=== PATIENT | female | born 1945 | race Caucasian/White ===

== ENCOUNTER 2019-09-08 10:10 | Inpatient (IN) ==
[2019-09-08] MEDS ORDERED: DEXTROSE 10% 250 ML BAG IV PRN (10:23)
[2019-09-08] MEDS ORDERED: GLUCAGON 1 MG VIAL IM PRN ×2 (10:23→12:09)
[2019-09-08] MEDS ORDERED: traMADol 50 MG TABLET PO PRN (10:23)
[2019-09-08] MEDS ORDERED: ACETAMINOPHEN 325 MG TABLET PO PRN (10:23)
[2019-09-08] MEDS ORDERED: ONDANSETRON 4 MG/2 ML VIAL IV PRN (10:23)
[2019-09-08] MEDS ORDERED: LABETALOL 20 MG/4 ML SYRINGE IV PRN (10:28)
[2019-09-08] MEDS ORDERED: DEXTROSE 50% 25 GM/50 ML VIAL IV PRN (12:09)
[2019-09-08 12:30] LABS: Basophils % 0.4 % (0.0-0.8); Eosinophils % 0.4 % (0.00-10.9); Hematocrit 44.5 VOL% (35.7-47.0); Hemoglobin 14.8 GM/DL (12.0-16.0); Immature Granulocytes % 0.4 %; Immature Granulocytes Absolute 0.02 #; Lymphocytes # 1.2 10*3/uL (1.4-4.0); Lymphocytes % 24.7 % (21.3-54.2); Mean Corpuscular HGB Conc 33.3 GM/DL (32-36); Mean Corpuscular Volume 84.8 FL (87-102); Mean Platelet Volume 10.9 FL (9.6-12.0); Monocytes % 7.8 % (1.7-12.7); Neutrophils % 66.3 % (38.7-73.9); Platelet Count 248 T/CUMM (130-400); Red Blood Count 5.25 MC/CUMM (3.8-5.5); Red Cell Distribution Width 13.8 % (9.3-17.3)
[2019-09-08 12:51] LABS: Albumin 3.5 G/DL (3.4-5.0); Bilirubin,Total 0.6 MG/DL (0.2-1.0); Calcium 9.3 MG/DL (8.5-10.1); Osmolality,Calculated 281.8 MOS/KG (273-304); Total Protein 7.9 G/DL (6.4-8.3)
[2019-09-08] MEDS: SODIUM CHLORIDE 0.9% 1,000 ML IV SCH (13:58)
[2019-09-08] MEDS ORDERED: ALBUTEROL 2.5 MG/3 ML NEB RESP TX PRN (15:41)
[2019-09-08] MEDS ORDERED: ASPIRIN 325 MG TABLET PO ONE (15:46)
[2019-09-08] MEDS: POTASSIUM CHLORIDE 10 MEQ TABLET PO SCH (17:47)
[2019-09-08] MEDS: GABAPENTIN 300 MG CAPSULE PO SCH ×2 (17:47→20:08)
[2019-09-08] MEDS: metFORMIN 500 MG TABLET PO SCH (17:47)
[2019-09-08] MEDS: INSULIN LISPRO 100 UNIT/ML SUBCUT SCH ×2 (17:48→20:56)
[2019-09-08] MEDS ORDERED: SIMVASTATIN 40 MG TABLET PO SCH (19:00)
[2019-09-08 19:25] LABS: Apearance,Urine CLEAR (Clear); Bilirubin,Urine Negative (Negative); Blood, Urine Negative (Negative); Glucose,Urine (UA) >=500 mg/dL (Negative); Ketones,Urine 5 mg/dL (Negative); Mucus,Urine Occasional /LPF (Occasional); Nitrite,Urine Negative (Negative); Protein,Urine Negative; RBC,Urine 3 /HPF (0-4); Squamous Epithelial Cell,Urine Occasional /HPF (0-10); Urine Color Straw (Yellow); Urine Specific Gravity 1.024 (1.001-1.035); Urine Urobilinogen < 2.0 EU/DL (0.2-1.0); WBC,Urine 11 /HPF (0-6)
[2019-09-08] MEDS: DOCUSATE SODIUM 100 MG CAPSULE PO SCH (20:07)
[2019-09-08] MEDS: AMITRIPTYLINE 100 MG TABLET PO SCH (20:07)
[2019-09-08] MEDS: MONTELUKAST 10 MG TABLET PO SCH (20:08)
[2019-09-08 20:12] LABS: Barbiturates Screen,Urine Negative (Negative); Benzodiazepines Screen,Urine Negative (Negative); Cannabinoid Screen,Urine Negative (Negative); Opiate Screen,Urine Negative (Negative); Phencyclidine Screen,Urine Negative (Negative)
[2019-09-08] MEDS: FLUTICASONE/SALMETEROL 500-50 DISKUS 14 DOSE INH SCH (20:56)
[2019-09-08] MEDS: INSULIN GLARGINE 100 UNIT/ML SUBCUT SCH (20:56)
[2019-09-08] MEDS: CLOTRIMAZOLE/BETAMETHASONE CREAM 15 GM TUBE TOP SCH (20:58)
[2019-09-08] MEDS ORDERED: INSULIN LISPRO 100 UNIT/ML SUBCUT SCH (21:00)
[2019-09-09] MEDS ORDERED: DEXTROSE 5% NACL 0.9% 1,000 ML IV SCH (00:10)
[2019-09-09] MEDS ORDERED: GLUCOSE GEL 15 GM TUBE PO ONE (00:16)
[2019-09-09] MEDS ORDERED: DEXTROSE 50% 25 GM/50 ML SYRINGE IV ONE (00:45)
[2019-09-09] MEDS ORDERED: GLUCAGON 1 MG VIAL IM ONE (00:45)
[2019-09-09] MEDS ORDERED: GLUCOSE GEL 15 GM TUBE PO PRN (02:00)
[2019-09-09] MEDS ORDERED: DEXTROSE 10% 250 ML BAG IV ONE (02:30)
[2019-09-09 04:58] LABS: Basophils % 0.2 % (0.0-0.8); Eosinophils # 0.1 10*3/uL (0.0-0.87); Eosinophils % 0.8 % (0.00-10.9); Hematocrit 36.1 VOL% (35.7-47.0); Hemoglobin 11.8 GM/DL (12.0-16.0); Immature Granulocytes % 0.4 %; Immature Granulocytes Absolute 0.03 #; Lymphocytes # 2.4 10*3/uL (1.4-4.0); Lymphocytes % 27.9 % (21.3-54.2); Mean Corpuscular HGB Conc 32.7 GM/DL (32-36); Mean Corpuscular Volume 85.5 FL (87-102); Mean Platelet Volume 10.8 FL (9.6-12.0); Monocytes % 6.9 % (1.7-12.7); Neutrophils % 63.8 % (38.7-73.9); Platelet Count 211 T/CUMM (130-400); Red Blood Count 4.22 MC/CUMM (3.8-5.5); Red Cell Distribution Width 13.7 % (9.3-17.3); White Blood Count 8.5 T/CUMM (4-12)
[2019-09-09 05:22] LABS: Calcium 7.9 MG/DL (8.5-10.1); Osmolality,Calculated 288.5 MOS/KG (273-304); Risk Ratio 2.97; VLDL CHOLESTEROL 25.2 MG/DL
[2019-09-09] MEDS: SODIUM CHLORIDE 0.9% 1,000 ML IV SCH ×2 (05:51→12:23)
[2019-09-09] MEDS ORDERED: EMPAGLIFLOZIN 25 MG PO SCH (09:00)
[2019-09-09] MEDS: INSULIN LISPRO 100 UNIT/ML SUBCUT SCH ×7 (09:46→21:49)
[2019-09-09] MEDS: metFORMIN 500 MG TABLET PO SCH ×2 (09:47→16:26)
[2019-09-09] MEDS: LOSARTAN/HCTZ 50-12.5 MG TABLET PO SCH (09:47)
[2019-09-09] MEDS: INSULIN GLARGINE 100 UNIT/ML SUBCUT SCH ×2 (09:47→21:50)
[2019-09-09] MEDS: DOCUSATE SODIUM 100 MG CAPSULE PO SCH ×2 (09:48→21:47)
[2019-09-09] MEDS: CLOTRIMAZOLE/BETAMETHASONE CREAM 15 GM TUBE TOP SCH ×2 (09:48→21:50)
[2019-09-09] MEDS: POTASSIUM CHLORIDE 10 MEQ TABLET PO SCH ×2 (09:48→16:35)
[2019-09-09] MEDS: FLUTICASONE/SALMETEROL 500-50 DISKUS 14 DOSE INH SCH ×2 (09:48→21:49)
[2019-09-09] MEDS: CITALOPRAM 20 MG TABLET PO SCH (09:48)
[2019-09-09] MEDS: GABAPENTIN 300 MG CAPSULE PO SCH ×4 (09:48→21:50)
[2019-09-09] MEDS: ASPIRIN 325 MG TABLET PO SCH (09:48)
[2019-09-09] MEDS: PANTOPRAZOLE 40 MG TABLET PO SCH (09:48)
[2019-09-09] MEDS: AMITRIPTYLINE 100 MG TABLET PO SCH (21:47)
[2019-09-09] MEDS: MONTELUKAST 10 MG TABLET PO SCH (21:47)
[2019-09-09] MEDS: SIMVASTATIN 40 MG TABLET PO SCH (21:51)
[2019-09-10 04:58] LABS: Basophils % 0.5 % (0.0-0.8); Eosinophils # 0.1 10*3/uL (0.0-0.87); Eosinophils % 2.3 % (0.00-10.9); Hematocrit 37.3 VOL% (35.7-47.0); Immature Granulocytes % 0.5 %; Immature Granulocytes Absolute 0.03 #; Lymphocytes # 2.7 10*3/uL (1.4-4.0); Lymphocytes % 44.4 % (21.3-54.2); Mean Corpuscular HGB Conc 32.2 GM/DL (32-36); Mean Corpuscular Volume 86.3 FL (87-102); Mean Platelet Volume 10.9 FL (9.6-12.0); Neutrophils % 45.3 % (38.7-73.9); Platelet Count 198 T/CUMM (130-400); Red Blood Count 4.32 MC/CUMM (3.8-5.5); Red Cell Distribution Width 13.9 % (9.3-17.3); White Blood Count 6.1 T/CUMM (4-12)
[2019-09-10 05:33] LABS: Calcium 8.5 MG/DL (8.5-10.1)
[2019-09-10] MEDS: SODIUM CHLORIDE 0.9% 1,000 ML IV SCH ×3 (09:32→22:08)
[2019-09-10] MEDS: INSULIN LISPRO 100 UNIT/ML SUBCUT SCH ×7 (09:33→22:09)
[2019-09-10] MEDS: INSULIN GLARGINE 100 UNIT/ML SUBCUT SCH ×2 (09:34→22:11)
[2019-09-10] MEDS: ASPIRIN 325 MG TABLET PO SCH (09:34)
[2019-09-10] MEDS: LOSARTAN/HCTZ 50-12.5 MG TABLET PO SCH (09:35)
[2019-09-10] MEDS: POTASSIUM CHLORIDE 10 MEQ TABLET PO SCH ×2 (09:35→16:52)
[2019-09-10] MEDS: PANTOPRAZOLE 40 MG TABLET PO SCH (09:35)
[2019-09-10] MEDS: GABAPENTIN 300 MG CAPSULE PO SCH ×4 (09:35→22:11)
[2019-09-10] MEDS: metFORMIN 500 MG TABLET PO SCH ×2 (09:35→16:53)
[2019-09-10] MEDS: CITALOPRAM 20 MG TABLET PO SCH (09:35)
[2019-09-10] MEDS: CLOTRIMAZOLE/BETAMETHASONE CREAM 15 GM TUBE TOP SCH ×2 (09:35→22:12)
[2019-09-10] MEDS: DOCUSATE SODIUM 100 MG CAPSULE PO SCH ×2 (09:36→22:09)
[2019-09-10] MEDS: FLUTICASONE/SALMETEROL 500-50 DISKUS 14 DOSE INH SCH ×2 (09:36→22:09)
[2019-09-10] MEDS: AMITRIPTYLINE 100 MG TABLET PO SCH (22:09)
[2019-09-10] MEDS: MONTELUKAST 10 MG TABLET PO SCH (22:11)
[2019-09-10] MEDS: SIMVASTATIN 40 MG TABLET PO SCH (22:11)
[2019-09-11 07:32] LABS: Basophils % 0.3 % (0.0-0.8); Eosinophils # 0.2 10*3/uL (0.0-0.87); Eosinophils % 3.1 % (0.00-10.9); Hematocrit 36.4 VOL% (35.7-47.0); Hemoglobin 11.5 GM/DL (12.0-16.0); Immature Granulocytes % 0.3 %; Immature Granulocytes Absolute 0.02 #; Lymphocytes # 2.6 10*3/uL (1.4-4.0); Lymphocytes % 41.4 % (21.3-54.2); Mean Corpuscular HGB Conc 31.6 GM/DL (32-36); Mean Corpuscular Volume 88.1 FL (87-102); Mean Platelet Volume 10.2 FL (9.6-12.0); Monocytes % 6.4 % (1.7-12.7); Neutrophils % 48.5 % (38.7-73.9); Platelet Count 201 T/CUMM (130-400); Red Blood Count 4.13 MC/CUMM (3.8-5.5); White Blood Count 6.2 T/CUMM (4-12)
[2019-09-11 07:57] LABS: Alanine Aminotransferase 16 U/L (13-56); Albumin 2.5 G/DL (3.4-5.0); Alkaline Phosphatase 100 U/L (45-117); Aspartate Amino Transferase 12 U/L (0-37); Bilirubin,Total < 0.39 MG/DL (0.2-1.0); Blood Urea Nitrogen 19 MG/DL (7-18); Estimated Glom Filtration Rate 70 ML/MIN; Glucose 115 MG/DL (74-106); Osmolality,Calculated 281.4 MOS/KG (273-304)
[2019-09-11 08:02] LABS: Eosinophils 6 % (0-10); Hypochromasia 1+; Lymphocytes 43 % (20-55); Microcytosis Slight; Platelet Estimate Adequate; Segmented Neutrophils 50 % (50-85); Total Cells Counted 100
[2019-09-11] MEDS: INSULIN LISPRO 100 UNIT/ML SUBCUT SCH ×7 (08:11→20:17)
[2019-09-11] MEDS: INSULIN GLARGINE 100 UNIT/ML SUBCUT SCH ×2 (09:08→21:07)
[2019-09-11] MEDS: GABAPENTIN 300 MG CAPSULE PO SCH ×4 (09:09→21:23)
[2019-09-11] MEDS: POTASSIUM CHLORIDE 10 MEQ TABLET PO SCH ×2 (09:09→16:49)
[2019-09-11] MEDS: ASPIRIN 325 MG TABLET PO SCH (09:09)
[2019-09-11] MEDS: LOSARTAN/HCTZ 50-12.5 MG TABLET PO SCH (09:09)
[2019-09-11] MEDS: DOCUSATE SODIUM 100 MG CAPSULE PO SCH ×2 (09:10→21:24)
[2019-09-11] MEDS: FLUTICASONE/SALMETEROL 500-50 DISKUS 14 DOSE INH SCH ×2 (09:10→21:24)
[2019-09-11] MEDS: CITALOPRAM 20 MG TABLET PO SCH (09:10)
[2019-09-11] MEDS: PANTOPRAZOLE 40 MG TABLET PO SCH (09:10)
[2019-09-11] MEDS: metFORMIN 500 MG TABLET PO SCH ×2 (09:10→16:05)
[2019-09-11] MEDS: CLOTRIMAZOLE/BETAMETHASONE CREAM 15 GM TUBE TOP SCH ×2 (09:10→21:24)
[2019-09-11] MEDS: SODIUM CHLORIDE 0.9% 1,000 ML IV SCH ×2 (13:03→15:51)
[2019-09-11] MEDS: SIMVASTATIN 40 MG TABLET PO SCH (21:23)
[2019-09-11] MEDS: AMITRIPTYLINE 100 MG TABLET PO SCH (21:24)
[2019-09-11] MEDS: MONTELUKAST 10 MG TABLET PO SCH (21:24)
[2019-09-12] MEDS: SODIUM CHLORIDE 0.9% 1,000 ML IV SCH ×2 (04:44→18:20)
[2019-09-12 06:33] LABS: Calcium 8.6 MG/DL (8.5-10.1); Osmolality,Calculated 282.3 MOS/KG (273-304)
[2019-09-12] MEDS: INSULIN LISPRO 100 UNIT/ML SUBCUT SCH ×7 (08:27→21:41)
[2019-09-12] MEDS: LOSARTAN/HCTZ 50-12.5 MG TABLET PO SCH (08:59)
[2019-09-12] MEDS: ASPIRIN 325 MG TABLET PO SCH (08:59)
[2019-09-12] MEDS: PANTOPRAZOLE 40 MG TABLET PO SCH (08:59)
[2019-09-12] MEDS: POTASSIUM CHLORIDE 10 MEQ TABLET PO SCH ×2 (08:59→17:25)
[2019-09-12] MEDS: DOCUSATE SODIUM 100 MG CAPSULE PO SCH ×2 (09:00→21:41)
[2019-09-12] MEDS: GABAPENTIN 300 MG CAPSULE PO SCH ×4 (09:00→21:42)
[2019-09-12] MEDS: INSULIN GLARGINE 100 UNIT/ML SUBCUT SCH ×2 (09:00→21:42)
[2019-09-12] MEDS: CITALOPRAM 20 MG TABLET PO SCH (09:00)
[2019-09-12] MEDS: metFORMIN 500 MG TABLET PO SCH ×2 (09:00→17:26)
[2019-09-12] MEDS: FLUTICASONE/SALMETEROL 500-50 DISKUS 14 DOSE INH SCH ×2 (09:01→21:41)
[2019-09-12] MEDS: CLOTRIMAZOLE/BETAMETHASONE CREAM 15 GM TUBE TOP SCH ×2 (09:02→21:42)
[2019-09-12] MEDS ORDERED: ASPIRIN EC 81 MG TABLET PO SCH (15:36)
[2019-09-12] MEDS: AMITRIPTYLINE 100 MG TABLET PO SCH (21:41)
[2019-09-12] MEDS: MONTELUKAST 10 MG TABLET PO SCH (21:42)
[2019-09-12] MEDS: SIMVASTATIN 40 MG TABLET PO SCH (21:42)
[2019-09-13] MEDS ORDERED: INSULIN GLARGINE 100 UNIT/ML SUBCUT SCH (08:08)
[2019-09-13] MEDS ORDERED: CLOPIDOGREL 75 MG TABLET PO SCH (09:00)
[2019-09-13] MEDS: DOCUSATE SODIUM 100 MG CAPSULE PO SCH (09:30)
[2019-09-13] MEDS: PANTOPRAZOLE 40 MG TABLET PO SCH (09:30)
[2019-09-13] MEDS: metFORMIN 500 MG TABLET PO SCH (09:30)
[2019-09-13] MEDS: LOSARTAN/HCTZ 50-12.5 MG TABLET PO SCH (09:30)
[2019-09-13] MEDS: GABAPENTIN 300 MG CAPSULE PO SCH ×2 (09:30→14:10)
[2019-09-13] MEDS: CITALOPRAM 20 MG TABLET PO SCH (09:31)
[2019-09-13] MEDS: INSULIN LISPRO 100 UNIT/ML SUBCUT SCH ×4 (09:31→11:50)
[2019-09-13] MEDS: POTASSIUM CHLORIDE 10 MEQ TABLET PO SCH (09:31)
[2019-09-13] MEDS: CLOTRIMAZOLE/BETAMETHASONE CREAM 15 GM TUBE TOP SCH (09:31)
[2019-09-13] MEDS: FLUTICASONE/SALMETEROL 500-50 DISKUS 14 DOSE INH SCH (09:31)
[2019-09-13] MEDS: SODIUM CHLORIDE 0.9% 1,000 ML IV SCH (11:48)
[2019-09-13 12:53] VITALS: BP 151/82
== END 2019-09-13 16:50 | DRG 65 ==
LOC: N.TELEN 10:47
PROVIDERS: ADMIT Internal Medicine; ATTEND Internal Medicine

== ENCOUNTER 2020-05-12 13:34 | Inpatient (IN) ==
[2020-05-12 14:04] LABS: Basophils % 0.2 % (0.0-0.8); Hematocrit 43.4 VOL% (35.7-47.0); Hemoglobin 14.6 GM/DL (12.0-16.0); Immature Granulocytes % 1.1 %; Immature Granulocytes Absolute 0.26 #; Lymphocytes # 0.7 10*3/uL (1.4-4.0); Lymphocytes % 3.1 % (21.3-54.2); Mean Corpuscular HGB Conc 33.6 GM/DL (32-36); Mean Corpuscular Volume 83.9 FL (87-102); Monocytes % 2.8 % (1.7-12.7); Neutrophils % 92.8 % (38.7-73.9); Platelet Count 292 T/CUMM (130-400); Red Blood Count 5.17 MC/CUMM (3.8-5.5); Red Cell Distribution Width 13.9 % (9.3-17.3); White Blood Count 23.7 T/CUMM (4-12)
[2020-05-12 14:14] LABS: INR 1.1; PT Patient Result 11.3 SECS (9.8-11.9); Partial Thromboplastin Time 35.3 SECS (23.9-33.8)
[2020-05-12 14:27] LABS: Albumin 3.3 G/DL (3.4-5.0); Bilirubin,Total 0.6 MG/DL (0.2-1.0); Calcium 9.6 MG/DL (8.5-10.1); Osmolality,Calculated 279.7 MOS/KG (273-304); Total Protein 8.4 G/DL (6.4-8.3)
[2020-05-12] MEDS ORDERED: PANTOPRAZOLE 40 MG VIAL IV STA (15:25)
[2020-05-12] MEDS ORDERED: ONDANSETRON 4 MG/2 ML VIAL IV ONE (15:51)
[2020-05-12] MEDS ORDERED: HYDROmorphone 2 MG/1 ML VIAL IV STA (15:51)
[2020-05-12 16:23] LABS: Alanine Aminotransferase 16 U/L (13-56); Albumin 3.2 G/DL (3.4-5.0); Alkaline Phosphatase 147 U/L (45-117); Aspartate Amino Transferase 12 U/L (0-37); Blood Urea Nitrogen 14 MG/DL (7-18); Calcium 9.1 MG/DL (8.5-10.1); Estimated Glom Filtration Rate 49 ML/MIN; Glucose 389 MG/DL (74-106); Osmolality,Calculated 284.2 MOS/KG (273-304); Total Protein 7.3 G/DL (6.4-8.3)
[2020-05-12] MEDS ORDERED: PIPERACILLIN/TAZOBACTAM 3,375 MG in SODIUM CHLORIDE 0.9% 100 ML IV STA ×2 (16:32→16:56)
[2020-05-12] MEDS ORDERED: LACTATED RINGERS 1,000 ML IV ONE (16:34)
[2020-05-12] MEDS ORDERED: ACETAMINOPHEN 325 MG TABLET PO PRN (16:44)
[2020-05-12] MEDS ORDERED: ALBUTEROL 2.5 MG/3 ML NEB RESP TX PRN (16:47)
[2020-05-12] MEDS ORDERED: PIPERACILLIN/TAZOBACTAM 3,375 MG VIAL IV ONE (16:56)
[2020-05-12] MEDS ORDERED: metFORMIN 500 MG TABLET PO SCH (17:00)
[2020-05-12 18:19] LABS: Bacteria,Urine Occasional /HPF (Few); Bilirubin,Urine Negative (Negative); Blood, Urine Small mg/dL (Negative); Glucose,Urine (UA) >=500 mg/dL (Negative); Ketones,Urine 20 mg/dL (Negative); Mucus,Urine Occasional /LPF (Occasional); Nitrite,Urine Negative (Negative); Protein,Urine 100 MG/DL; RBC,Urine 3 /HPF (0-4); Squamous Epithelial Cell,Urine Occasional /HPF (0-10); Urine Appearance CLEAR (Clear); Urine Color Yellow (Yellow); Urine Urobilinogen < 2.0 EU/DL (0.2-1.0); WBC,Urine 4 /HPF (0-6)
[2020-05-12] MEDS: HYDROmorphone 2 MG/1 ML VIAL IV PRN ×2 (18:21→21:37)
[2020-05-12] MEDS ORDERED: GLUCAGON 1 MG VIAL IM PRN (19:29)
[2020-05-12] MEDS ORDERED: DEXTROSE 50% 25 GM/50 ML VIAL IV PRN (19:29)
[2020-05-12 20:37] LABS: Band Neutrophils 3 % (0-10); Lymphocytes 2 % (20-55); Segmented Neutrophils 90 % (50-85); Total Cells Counted 100
[2020-05-12 20:38] LABS: Platelet Estimate Normal
[2020-05-12] MEDS: GABAPENTIN 300 MG CAPSULE PO SCH (21:28)
[2020-05-12] MEDS: AMITRIPTYLINE 25 MG TABLET PO SCH (21:28)
[2020-05-12] MEDS: ENOXAPARIN 40 MG/0.4 ML SYRINGE SUBCUT SCH (21:29)
[2020-05-12] MEDS: FLUTICASONE/SALMETEROL 500-50 DISKUS 14 DOSE INH SCH (21:31)
[2020-05-12] MEDS: ONDANSETRON 4 MG/2 ML VIAL IV PRN (21:37)
[2020-05-12] MEDS: DOCUSATE SODIUM 100 MG CAPSULE PO SCH (21:45)
[2020-05-13] MEDS: LACTATED RINGERS 1,000 ML IV SCH (00:45)
[2020-05-13] MEDS: INSULIN LISPRO 100 UNIT/ML SUBCUT SCH ×5 (01:15→18:09)
[2020-05-13] MEDS: HYDROmorphone 2 MG/1 ML VIAL IV PRN ×2 (01:23→11:04)
[2020-05-13] MEDS: PIPERACILLIN/TAZOBACTAM 3,375 MG in SODIUM CHLORIDE 0.9% 100 ML IV SCH ×2 (01:32→12:55)
[2020-05-13] MEDS: ONDANSETRON 4 MG/2 ML VIAL IV PRN ×3 (04:59→11:04)
[2020-05-13] MEDS ORDERED: cefOXitin 2,000 MG in SYRINGE 1 EACH IV ONE (06:34)
[2020-05-13] MEDS ORDERED: INDOCYANINE GREEN 25 MG VIAL IV ONE (06:34)
[2020-05-13 07:08] LABS: Basophils % 0.2 % (0.0-0.8); Hematocrit 39.5 VOL% (35.7-47.0); Hemoglobin 12.9 GM/DL (12.0-16.0); Immature Granulocytes % 2.9 %; Immature Granulocytes Absolute 0.75 #; Lymphocytes # 0.6 10*3/uL (1.4-4.0); Lymphocytes % 2.2 % (21.3-54.2); Mean Corpuscular HGB Conc 32.7 GM/DL (32-36); Mean Corpuscular Volume 86.4 FL (87-102); Mean Platelet Volume 10.5 FL (9.6-12.0); Monocytes % 5.7 % (1.7-12.7); Platelet Count 295 T/CUMM (130-400); Red Blood Count 4.57 MC/CUMM (3.8-5.5); Red Cell Distribution Width 14.5 % (9.3-17.3); White Blood Count 25.9 T/CUMM (4-12)
[2020-05-13 07:24] LABS: Albumin 2.5 G/DL (3.4-5.0); Bilirubin,Total 1.1 MG/DL (0.2-1.0); Calcium 9.3 MG/DL (8.5-10.1); Osmolality,Calculated 285.4 MOS/KG (273-304); Total Protein 7.3 G/DL (6.4-8.3)
[2020-05-13] MEDS ORDERED: INSULIN LISPRO 100 UNIT/ML SUBCUT SCH (08:00)
[2020-05-13] MEDS ORDERED: Empagliflozin [Jardiance] PO SCH (09:00)
[2020-05-13] MEDS ORDERED: LOSARTAN/HCTZ 50-12.5 MG TABLET PO SCH (09:00)
[2020-05-13] MEDS: CITALOPRAM 20 MG TABLET PO SCH (09:57)
[2020-05-13] MEDS: DOCUSATE SODIUM 100 MG CAPSULE PO SCH ×2 (09:58→21:10)
[2020-05-13] MEDS: GABAPENTIN 300 MG CAPSULE PO SCH ×2 (09:58→19:19)
[2020-05-13] MEDS ORDERED: BUPIVACAINE MPF 0.25% 30 ML VIAL ONE (10:48)
[2020-05-13] MEDS ORDERED: LIDOCAINE 1%/EPI INJ 20 ML VIAL ONE (10:48)
[2020-05-13 11:04] LABS: Hypochromasia 1+; Platelet Estimate Normal; Polychromasia Slight; Segmented Neutrophils 90 % (50-85); Total Cells Counted 100
[2020-05-13] MEDS: PANTOPRAZOLE 40 MG TABLET PO SCH (12:55)
[2020-05-13] MEDS: FLUTICASONE/SALMETEROL 500-50 DISKUS 14 DOSE INH SCH ×2 (12:55→21:13)
[2020-05-13] MEDS ORDERED: TISSUE ADHESIVE 1 EACH APPLICATOR TOP ONE (15:09)
[2020-05-13] MEDS ORDERED: LIDOCAINE 2% 5 ML VIAL ONE (15:28)
[2020-05-13] MEDS ORDERED: SEVOFLURANE 1 UNIT/15 MINUTE INH ONE (15:28)
[2020-05-13] MEDS ORDERED: propofoL 200 MG/20 ML VIAL IV ONE (15:28)
[2020-05-13] MEDS ORDERED: HYDROmorphone 2 MG/1 ML VIAL IV PRN (15:28)
[2020-05-13] MEDS ORDERED: ONDANSETRON 4 MG/2 ML VIAL ONE (15:29)
[2020-05-13] MEDS ORDERED: NEOSTIGMINE 10 MG/10 ML VIAL ONE (15:29)
[2020-05-13] MEDS ORDERED: ETOMIDATE 40 MG/20 ML VIAL IV ONE (15:29)
[2020-05-13] MEDS ORDERED: LACTATED RINGERS 2,000 ML IV ONE (15:29)
[2020-05-13] MEDS ORDERED: ROCURONIUM 100 MG/10 ML VIAL IV ONE (15:29)
[2020-05-13] MEDS ORDERED: GLYCOPYRROLATE 0.4 MG/2 ML VIAL ONE (15:29)
[2020-05-13] MEDS ORDERED: fentaNYL 100 MCG/2 ML VIAL ONE (15:29)
[2020-05-13] MEDS ORDERED: MIDAZOLAM 2 MG/2 ML VIAL ONE (15:29)
[2020-05-13] MEDS ORDERED: ACETAMINOPHEN 1,000 MG/100 ML VIAL IV ONE (15:29)
[2020-05-13] MEDS ORDERED: PHENYLEPHRINE 1 MG/10 ML SYRINGE IV ONE (15:29)
[2020-05-13] MEDS: ENOXAPARIN 40 MG/0.4 ML SYRINGE SUBCUT SCH (21:10)
[2020-05-13] MEDS: AMITRIPTYLINE 25 MG TABLET PO SCH (21:10)
[2020-05-14] MEDS: GABAPENTIN 300 MG CAPSULE PO SCH ×5 (00:43→21:21)
[2020-05-14] MEDS: INSULIN LISPRO 100 UNIT/ML SUBCUT SCH ×4 (01:52→18:34)
[2020-05-14] MEDS: LACTATED RINGERS 1,000 ML IV SCH ×4 (01:52→09:20)
[2020-05-14 06:45] LABS: Basophils % 0.1 % (0.0-0.8); Eosinophils # 0.1 10*3/uL (0.0-0.87); Eosinophils % 0.5 % (0.00-10.9); Hematocrit 36.9 VOL% (35.7-47.0); Hemoglobin 12.1 GM/DL (12.0-16.0); Immature Granulocytes % 0.8 %; Immature Granulocytes Absolute 0.12 #; Lymphocytes % 6.8 % (21.3-54.2); Mean Corpuscular HGB Conc 32.8 GM/DL (32-36); Mean Corpuscular Volume 86.4 FL (87-102); Mean Platelet Volume 10.2 FL (9.6-12.0); Monocytes % 5.5 % (1.7-12.7); Neutrophils % 86.3 % (38.7-73.9); Platelet Count 296 T/CUMM (130-400); Red Blood Count 4.27 MC/CUMM (3.8-5.5); Red Cell Distribution Width 14.7 % (9.3-17.3); White Blood Count 15.2 T/CUMM (4-12)
[2020-05-14 07:27] LABS: Bilirubin,Total 1.9 MG/DL (0.2-1.0); Calcium 8.8 MG/DL (8.5-10.1); Total Protein 6.8 G/DL (6.4-8.3)
[2020-05-14] MEDS: PANTOPRAZOLE 40 MG TABLET PO SCH (09:14)
[2020-05-14] MEDS: CITALOPRAM 20 MG TABLET PO SCH (09:17)
[2020-05-14] MEDS: DOCUSATE SODIUM 100 MG CAPSULE PO SCH ×2 (09:17→21:21)
[2020-05-14] MEDS: FLUTICASONE/SALMETEROL 500-50 DISKUS 14 DOSE INH SCH ×2 (09:20→21:22)
[2020-05-14] MEDS: TOPIRAMATE 25 MG TABLET PO SCH ×2 (09:22→21:22)
[2020-05-14] MEDS ORDERED: METHOCARBAMOL 750 MG TABLET PO PRN (09:22)
[2020-05-14] MEDS: PIPERACILLIN/TAZOBACTAM 3,375 MG in SODIUM CHLORIDE 0.9% 100 ML IV SCH ×3 (10:13→17:26)
[2020-05-14] MEDS: POTASSIUM CHLORIDE RIDER 10 MEQ in PREMIX 1 EACH IV PRN (10:13)
[2020-05-14] MEDS: POTASSIUM CHLORIDE 10 MEQ TABLET PO SCH (17:23)
[2020-05-14] MEDS: AMITRIPTYLINE 25 MG TABLET PO SCH (21:21)
[2020-05-14] MEDS: ENOXAPARIN 40 MG/0.4 ML SYRINGE SUBCUT SCH (21:22)
[2020-05-15] MEDS: LACTATED RINGERS 1,000 ML IV SCH ×2 (01:06→09:11)
[2020-05-15] MEDS: PIPERACILLIN/TAZOBACTAM 3,375 MG in SODIUM CHLORIDE 0.9% 100 ML IV SCH ×2 (01:13→09:11)
[2020-05-15] MEDS: INSULIN LISPRO 100 UNIT/ML SUBCUT SCH ×5 (01:13→23:34)
[2020-05-15 06:02] LABS: Basophils % 0.3 % (0.0-0.8); Eosinophils # 0.4 10*3/uL (0.0-0.87); Eosinophils % 3.4 % (0.00-10.9); Hematocrit 35.1 VOL% (35.7-47.0); Hemoglobin 11.1 GM/DL (12.0-16.0); Immature Granulocytes % 0.6 %; Immature Granulocytes Absolute 0.07 #; Lymphocytes # 1.3 10*3/uL (1.4-4.0); Lymphocytes % 11.5 % (21.3-54.2); Mean Corpuscular HGB Conc 31.6 GM/DL (32-36); Mean Corpuscular Volume 87.5 FL (87-102); Mean Platelet Volume 10.4 FL (9.6-12.0); Monocytes % 6.2 % (1.7-12.7); Platelet Count 299 T/CUMM (130-400); Red Blood Count 4.01 MC/CUMM (3.8-5.5); Red Cell Distribution Width 14.6 % (9.3-17.3); White Blood Count 11.6 T/CUMM (4-12)
[2020-05-15 07:47] LABS: Albumin 2.1 G/DL (3.4-5.0); Bilirubin,Total 0.4 MG/DL (0.2-1.0); Calcium 8.8 MG/DL (8.5-10.1); Osmolality,Calculated 284.7 MOS/KG (273-304); Total Protein 7.6 G/DL (6.4-8.3)
[2020-05-15] MEDS: CITALOPRAM 20 MG TABLET PO SCH (09:07)
[2020-05-15] MEDS: FLUTICASONE/SALMETEROL 500-50 DISKUS 14 DOSE INH SCH ×2 (09:09→21:37)
[2020-05-15] MEDS: PANTOPRAZOLE 40 MG TABLET PO SCH (09:10)
[2020-05-15] MEDS: GABAPENTIN 300 MG CAPSULE PO SCH ×4 (09:10→21:36)
[2020-05-15] MEDS: DOCUSATE SODIUM 100 MG CAPSULE PO SCH ×2 (09:10→21:36)
[2020-05-15] MEDS: POTASSIUM CHLORIDE 10 MEQ TABLET PO SCH ×2 (09:10→17:43)
[2020-05-15] MEDS: TOPIRAMATE 25 MG TABLET PO SCH ×2 (09:10→21:36)
[2020-05-15] MEDS: amLODIPine 5 MG TABLET PO SCH (09:10)
[2020-05-15] MEDS: AMITRIPTYLINE 25 MG TABLET PO SCH (21:37)
[2020-05-15] MEDS: ENOXAPARIN 40 MG/0.4 ML SYRINGE SUBCUT SCH (21:37)
[2020-05-16] MEDS: LACTATED RINGERS 1,000 ML IV SCH ×3 (02:04→05:55)
[2020-05-16 05:29] LABS: Basophils % 0.5 % (0.0-0.8); Eosinophils # 0.5 10*3/uL (0.0-0.87); Eosinophils % 6.1 % (0.00-10.9); Hematocrit 33.6 VOL% (35.7-47.0); Hemoglobin 10.7 GM/DL (12.0-16.0); Immature Granulocytes % 0.7 %; Immature Granulocytes Absolute 0.06 #; Lymphocytes # 1.9 10*3/uL (1.4-4.0); Lymphocytes % 21.8 % (21.3-54.2); Mean Corpuscular HGB Conc 31.8 GM/DL (32-36); Mean Platelet Volume 9.9 FL (9.6-12.0); Monocytes % 7.2 % (1.7-12.7); Neutrophils % 63.7 % (38.7-73.9); Platelet Count 285 T/CUMM (130-400); Red Blood Count 3.82 MC/CUMM (3.8-5.5); Red Cell Distribution Width 14.6 % (9.3-17.3); White Blood Count 8.7 T/CUMM (4-12)
[2020-05-16 05:47] LABS: Albumin 1.7 G/DL (3.4-5.0); Bilirubin,Total 0.4 MG/DL (0.2-1.0); Calcium 8.4 MG/DL (8.5-10.1); Osmolality,Calculated 279.8 MOS/KG (273-304); Total Protein 6.2 G/DL (6.4-8.3)
[2020-05-16] MEDS: INSULIN LISPRO 100 UNIT/ML SUBCUT SCH ×2 (05:55→11:55)
[2020-05-16] MEDS: CITALOPRAM 20 MG TABLET PO SCH (08:56)
[2020-05-16] MEDS: DOCUSATE SODIUM 100 MG CAPSULE PO SCH (08:56)
[2020-05-16] MEDS: TOPIRAMATE 25 MG TABLET PO SCH (08:56)
[2020-05-16] MEDS: PANTOPRAZOLE 40 MG TABLET PO SCH (08:56)
[2020-05-16] MEDS: amLODIPine 5 MG TABLET PO SCH (08:56)
[2020-05-16] MEDS: FLUTICASONE/SALMETEROL 500-50 DISKUS 14 DOSE INH SCH (08:56)
[2020-05-16] MEDS: POTASSIUM CHLORIDE 10 MEQ TABLET PO SCH (09:02)
[2020-05-16] MEDS: POTASSIUM CHLORIDE RIDER 10 MEQ in PREMIX 1 EACH IV PRN ×4 (09:03→13:16)
[2020-05-16] MEDS: GABAPENTIN 300 MG CAPSULE PO SCH ×2 (10:22→13:16)
[2020-05-16 12:30] VITALS: BP 140/72
== END 2020-05-16 15:44 | disposition home health service (06) | DRG 418 ==
LOC: N.EDINP 13:34 → N.ED 13:34 → N.3E 18:49
PROVIDERS: ADMIT Internal Medicine; ATTEND Internal Medicine

== ENCOUNTER 2021-04-24 20:10 | Inpatient (IN) ==
[2021-04-24] MEDS ORDERED: ONDANSETRON 4 MG/2 ML VIAL IV STA (20:47)
[2021-04-24] MEDS ORDERED: SODIUM CHLORIDE 0.9% 500 ML IV STA (20:47)
[2021-04-24 21:21] LABS: Bilirubin,Urine Negative (Negative); Blood, Urine Moderate mg/dL (Negative); Glucose,Urine (UA) >=500 mg/dL (Negative); Ketones,Urine Negative (Negative); Nitrite,Urine Negative (Negative); Protein,Urine 30 MG/DL; RBC,Urine 10 /HPF (0-4); Squamous Epithelial Cell,Urine Occasional /HPF (0-10); Urine Appearance CLOUDY (Clear); Urine Color Red (Yellow); Urine Specific Gravity 1.028 (1.001-1.035); Urine Urobilinogen < 2.0 EU/DL (0.2-1.0)
[2021-04-24 21:24] LABS: Basophils % 0.3 % (0.0-0.8); Eosinophils # 0.3 10*3/uL (0.0-0.87); Hematocrit 39.4 VOL% (35.7-47.0); Hemoglobin 12.6 GM/DL (12.0-16.0); Immature Granulocytes % 0.4 %; Immature Granulocytes Absolute 0.04 #; Lymphocytes # 2.6 10*3/uL (1.4-4.0); Lymphocytes % 26.7 % (21.3-54.2); Mean Platelet Volume 10.2 FL (9.6-12.0); Monocytes % 6.8 % (1.7-12.7); Neutrophils % 62.8 % (38.7-73.9); Platelet Count 274 T/CUMM (130-400); Red Blood Count 4.53 MC/CUMM (3.8-5.5); Red Cell Distribution Width 13.9 % (9.3-17.3); White Blood Count 9.6 T/CUMM (4-12)
[2021-04-24 21:45] LABS: Alanine Aminotransferase 32 U/L (13-56); Albumin 3.5 G/DL (3.4-5.0); Alkaline Phosphatase 146 U/L (45-117); Aspartate Amino Transferase 27 U/L (0-37); Bilirubin,Total < 0.39 MG/DL (0.20-1.00); Blood Urea Nitrogen 26 MG/DL (7-18); CKMB % 2.6 %; Calcium 8.8 MG/DL (8.5-10.1); Carbon Dioxide 28 MMOL/L (21-32); Estimated Glom Filtration Rate 39 ML/MIN; Glucose 248 MG/DL (74-106); Osmolality,Calculated 287.7 MOS/KG (273-304); Potassium 3.6 MMOL/L (3.5-5.1); Sodium 138 MMOL/L (136-145); Total Protein 6.5 G/DL (6.4-8.2)
[2021-04-24 21:50] LABS: Barbiturates Screen,Urine Negative (Negative); Benzodiazepines Screen,Urine Negative (Negative); Cannabinoid Screen,Urine Negative (Negative); Opiate Screen,Urine Positive (Negative); Phencyclidine Screen,Urine Negative (Negative)
[2021-04-24] MEDS ORDERED: cefTRIAXone 1,000 MG in SODIUM CHLORIDE 0.9% 100 ML IV STA (23:48)
[2021-04-25] MEDS ORDERED: DEXTROSE 50% 25 GM/50 ML VIAL IV PRN (01:16)
[2021-04-25] MEDS ORDERED: HYDROmorphone 2 MG/1 ML VIAL IV PRN (01:16)
[2021-04-25] MEDS ORDERED: GLUCAGON 1 MG VIAL IM PRN (01:16)
[2021-04-25] MEDS ORDERED: ACETAMINOPHEN 325 MG TABLET PO PRN ×2 (01:16→08:52)
[2021-04-25] MEDS: SODIUM CHLORIDE 0.9% 1,000 ML IV SCH ×2 (01:20→15:12)
[2021-04-25 04:38] LABS: Basophils # 0.1 10*3/uL (0.0-0.2); Basophils % 0.6 % (0.0-0.8); Eosinophils # 0.3 10*3/uL (0.0-0.87); Eosinophils % 3.3 % (0.00-10.9); Hematocrit 38.8 VOL% (35.7-47.0); Hemoglobin 12.6 GM/DL (12.0-16.0); Immature Granulocytes % 0.3 %; Immature Granulocytes Absolute 0.03 #; Lymphocytes # 3.2 10*3/uL (1.4-4.0); Lymphocytes % 33.7 % (21.3-54.2); Mean Corpuscular HGB Conc 32.5 GM/DL (32-36); Mean Corpuscular Volume 89.2 FL (87-102); Mean Platelet Volume 10.6 FL (9.6-12.0); Monocytes % 6.8 % (1.7-12.7); Neutrophils % 55.3 % (38.7-73.9); Platelet Count 263 T/CUMM (130-400); Red Blood Count 4.35 MC/CUMM (3.8-5.5); Red Cell Distribution Width 14.1 % (9.3-17.3); White Blood Count 9.4 T/CUMM (4-12)
[2021-04-25 05:02] LABS: Alanine Aminotransferase 28 U/L (13-56); Albumin 3.1 G/DL (3.4-5.0); Alkaline Phosphatase 124 U/L (45-117); Aspartate Amino Transferase 23 U/L (0-37); Bilirubin,Total < 0.39 MG/DL (0.20-1.00); Blood Urea Nitrogen 24 MG/DL (7-18); Calcium 8.2 MG/DL (8.5-10.1); Carbon Dioxide 28 MMOL/L (21-32); Estimated Glom Filtration Rate 41 ML/MIN; Glucose 170 MG/DL (74-106); HDL Cholesterol 52 MG/DL (40-60); Osmolality,Calculated 288.3 MOS/KG (273-304); Potassium 3.2 MMOL/L (3.5-5.1); Risk Ratio 2.46; Sodium 141 MMOL/L (136-145); Total Protein 6.5 G/DL (6.4-8.2); Triglycerides 178 MG/DL (2-150); VLDL Cholesterol 35.6 MG/DL
[2021-04-25] MEDS: INSULIN REGULAR 100 UNIT/ML SUBCUT SCH ×3 (05:44→18:46)
[2021-04-25] MEDS ORDERED: NALOXONE 0.4 MG/ML VIAL IV ONE (08:46)
[2021-04-25] MEDS ORDERED: NON-FORMULARY MEDICATION (Insulin Aspart U-100 [Novolog Flexpen U-100 Insulin] 100 unit/mL SUBCUT SCH (09:00)
[2021-04-25] MEDS: ASPIRIN EC 81 MG TABLET PO SCH (10:20)
[2021-04-25] MEDS: PANTOPRAZOLE 40 MG TABLET PO SCH ×2 (10:21→10:44)
[2021-04-25] MEDS: amLODIPine 2.5 MG TABLET PO SCH (10:21)
[2021-04-25] MEDS: CITALOPRAM 20 MG TABLET PO SCH (10:21)
[2021-04-25] MEDS: CLOPIDOGREL 75 MG TABLET PO SCH (10:21)
[2021-04-25] MEDS: TOPIRAMATE 25 MG TABLET PO SCH ×2 (10:21→21:53)
[2021-04-25] MEDS: DOCUSATE SODIUM 100 MG CAPSULE PO SCH ×2 (10:22→21:51)
[2021-04-25] MEDS: ENOXAPARIN 40 MG/0.4 ML SYRINGE SUBCUT SCH (10:22)
[2021-04-25] MEDS: LOSARTAN/HCTZ 50-12.5 MG TABLET PO SCH (10:24)
[2021-04-25] MEDS: INSULIN LISPRO 100 UNIT/ML SUBCUT SCH ×2 (12:20→18:43)
[2021-04-25] MEDS: METHOCARBAMOL 500 MG TABLET PO PRN (13:42)
[2021-04-25] MEDS: metFORMIN 500 MG TABLET PO SCH (18:43)
[2021-04-25] MEDS: POTASSIUM CHLORIDE 10 MEQ TABLET PO SCH (18:43)
[2021-04-25] MEDS: SIMVASTATIN 40 MG TABLET PO SCH (21:51)
[2021-04-25] MEDS: traZODone 50 MG TABLET PO SCH (21:52)
[2021-04-25] MEDS: MONTELUKAST 10 MG TABLET PO SCH (21:53)
[2021-04-25] MEDS: cefTRIAXone 1,000 MG in SODIUM CHLORIDE 0.9% 100 ML IV SCH (23:52)
[2021-04-25] MEDS: INSULIN GLARGINE 100 UNIT/ML SUBCUT SCH (23:52)
[2021-04-26] MEDS: INSULIN REGULAR 100 UNIT/ML SUBCUT SCH ×4 (00:53→19:21)
[2021-04-26 06:12] LABS: Basophils % 0.5 % (0.0-0.8); Eosinophils # 0.2 10*3/uL (0.0-0.87); Hematocrit 35.7 VOL% (35.7-47.0); Hemoglobin 11.4 GM/DL (12.0-16.0); Immature Granulocytes % 0.4 %; Immature Granulocytes Absolute 0.03 #; Lymphocytes % 24.3 % (21.3-54.2); Mean Corpuscular HGB Conc 31.9 GM/DL (32-36); Mean Corpuscular Volume 88.6 FL (87-102); Mean Platelet Volume 10.4 FL (9.6-12.0); Monocytes % 7.2 % (1.7-12.7); Neutrophils % 65.6 % (38.7-73.9); Platelet Count 231 T/CUMM (130-400); Red Blood Count 4.03 MC/CUMM (3.8-5.5); Red Cell Distribution Width 14.1 % (9.3-17.3); White Blood Count 8.3 T/CUMM (4-12)
[2021-04-26 06:46] LABS: Calcium 8.3 MG/DL (8.5-10.1); Osmolality,Calculated 286.4 MOS/KG (273-304); Potassium 3.6 MMOL/L (3.5-5.1)
[2021-04-26] MEDS: SODIUM CHLORIDE 0.9% 1,000 ML IV SCH ×2 (08:40→22:49)
[2021-04-26] MEDS: ENOXAPARIN 40 MG/0.4 ML SYRINGE SUBCUT SCH (10:16)
[2021-04-26] MEDS: metFORMIN 500 MG TABLET PO SCH ×2 (10:17→17:07)
[2021-04-26] MEDS: POTASSIUM CHLORIDE 10 MEQ TABLET PO SCH ×2 (10:17→17:07)
[2021-04-26] MEDS: CITALOPRAM 20 MG TABLET PO SCH (10:17)
[2021-04-26] MEDS: amLODIPine 2.5 MG TABLET PO SCH (10:17)
[2021-04-26] MEDS: TOPIRAMATE 25 MG TABLET PO SCH ×2 (10:18→21:41)
[2021-04-26] MEDS: ASPIRIN EC 81 MG TABLET PO SCH (10:18)
[2021-04-26] MEDS: PANTOPRAZOLE 40 MG TABLET PO SCH ×2 (10:18→10:59)
[2021-04-26] MEDS: DOCUSATE SODIUM 100 MG CAPSULE PO SCH ×2 (10:19→21:40)
[2021-04-26] MEDS: METHOCARBAMOL 500 MG TABLET PO PRN (10:19)
[2021-04-26] MEDS: CLOPIDOGREL 75 MG TABLET PO SCH (10:19)
[2021-04-26] MEDS: INSULIN GLARGINE 100 UNIT/ML SUBCUT SCH ×2 (10:20→21:42)
[2021-04-26] MEDS: INSULIN LISPRO 100 UNIT/ML SUBCUT SCH ×3 (10:58→17:08)
[2021-04-26] MEDS: LOSARTAN/HCTZ 50-12.5 MG TABLET PO SCH (12:29)
[2021-04-26] MEDS: SIMVASTATIN 40 MG TABLET PO SCH (21:40)
[2021-04-26] MEDS: traZODone 50 MG TABLET PO SCH (21:40)
[2021-04-26] MEDS: MONTELUKAST 10 MG TABLET PO SCH (21:40)
[2021-04-26] MEDS: cefTRIAXone 1,000 MG in SODIUM CHLORIDE 0.9% 100 ML IV SCH (21:41)
[2021-04-26] MEDS: ONDANSETRON 4 MG/2 ML VIAL IV PRN (23:30)
[2021-04-27] MEDS: INSULIN REGULAR 100 UNIT/ML SUBCUT SCH ×5 (01:11→22:00)
[2021-04-27] MEDS: METHOCARBAMOL 500 MG TABLET PO PRN ×2 (02:29→13:00)
[2021-04-27 04:44] LABS: Basophils % 0.2 % (0.0-0.8); Eosinophils # 0.3 10*3/uL (0.0-0.87); Eosinophils % 2.9 % (0.00-10.9); Hematocrit 36.3 VOL% (35.7-47.0); Hemoglobin 11.5 GM/DL (12.0-16.0); Immature Granulocytes % 0.4 %; Immature Granulocytes Absolute 0.04 #; Lymphocytes # 1.9 10*3/uL (1.4-4.0); Mean Corpuscular HGB Conc 31.7 GM/DL (32-36); Mean Corpuscular Volume 87.5 FL (87-102); Mean Platelet Volume 10.7 FL (9.6-12.0); Monocytes % 5.7 % (1.7-12.7); Neutrophils % 69.8 % (38.7-73.9); Platelet Count 239 T/CUMM (130-400); Red Blood Count 4.15 MC/CUMM (3.8-5.5); Red Cell Distribution Width 13.9 % (9.3-17.3); White Blood Count 9.1 T/CUMM (4-12)
[2021-04-27 05:06] LABS: Calcium 8.6 MG/DL (8.5-10.1); Osmolality,Calculated 278.5 MOS/KG (273-304); Potassium 3.1 MMOL/L (3.5-5.1)
[2021-04-27] MEDS: SODIUM CHLORIDE 0.9% 1,000 ML IV SCH ×3 (06:38→23:58)
[2021-04-27] MEDS: POTASSIUM CHLORIDE 20 MEQ TABLET PO PRN ×2 (09:45→18:49)
[2021-04-27] MEDS: ENOXAPARIN 40 MG/0.4 ML SYRINGE SUBCUT SCH (09:45)
[2021-04-27] MEDS: DOCUSATE SODIUM 100 MG CAPSULE PO SCH (09:46)
[2021-04-27] MEDS: metFORMIN 500 MG TABLET PO SCH (09:46)
[2021-04-27] MEDS: LOSARTAN/HCTZ 50-12.5 MG TABLET PO SCH (09:46)
[2021-04-27] MEDS: CITALOPRAM 20 MG TABLET PO SCH (09:46)
[2021-04-27] MEDS: INSULIN LISPRO 100 UNIT/ML SUBCUT SCH ×3 (09:46→18:32)
[2021-04-27] MEDS: ASPIRIN EC 81 MG TABLET PO SCH (09:46)
[2021-04-27] MEDS: INSULIN GLARGINE 100 UNIT/ML SUBCUT SCH ×2 (09:46→22:00)
[2021-04-27] MEDS: POTASSIUM CHLORIDE 10 MEQ TABLET PO SCH ×2 (09:46→18:49)
[2021-04-27] MEDS: PANTOPRAZOLE 40 MG TABLET PO SCH ×2 (09:47→09:49)
[2021-04-27] MEDS: amLODIPine 2.5 MG TABLET PO SCH (09:47)
[2021-04-27] MEDS: CLOPIDOGREL 75 MG TABLET PO SCH (09:47)
[2021-04-27] MEDS: TOPIRAMATE 25 MG TABLET PO SCH ×2 (09:47→21:59)
[2021-04-27] MEDS ORDERED: KETOROLAC 15 MG/1 ML VIAL IV PRN (12:09)
[2021-04-27] MEDS ORDERED: CITALOPRAM 20 MG TABLET PO ONE (12:10)
[2021-04-27] MEDS: methylPREDNISolone SOD SUC 40 MG/1 ML VIAL IV SCH (18:31)
[2021-04-27] MEDS: oxyCODONE/ACETAMINOPHEN 5-325 MG TABLET PO PRN (18:32)
[2021-04-27] MEDS: traMADol 50 MG TABLET PO PRN (18:33)
[2021-04-27] MEDS: GABAPENTIN 400 MG CAPSULE PO SCH ×2 (18:34→21:58)
[2021-04-27] MEDS: MONTELUKAST 10 MG TABLET PO SCH (21:59)
[2021-04-27] MEDS: traZODone 50 MG TABLET PO SCH (21:59)
[2021-04-27] MEDS: SIMVASTATIN 40 MG TABLET PO SCH (21:59)
[2021-04-27] MEDS: cefTRIAXone 1,000 MG in SODIUM CHLORIDE 0.9% 100 ML IV SCH (22:04)
[2021-04-28] MEDS: methylPREDNISolone SOD SUC 40 MG/1 ML VIAL IV SCH ×2 (01:34→14:51)
[2021-04-28] MEDS: INSULIN REGULAR 100 UNIT/ML SUBCUT SCH ×5 (01:35→20:58)
[2021-04-28] MEDS: cefTRIAXone 1,000 MG in SODIUM CHLORIDE 0.9% 100 ML IV SCH ×2 (01:36→23:13)
[2021-04-28 06:12] LABS: Basophils % 0.3 % (0.0-0.8); Hematocrit 38.7 VOL% (35.7-47.0); Hemoglobin 12.8 GM/DL (12.0-16.0); Immature Granulocytes % 0.7 %; Immature Granulocytes Absolute 0.05 #; Lymphocytes # 1.3 10*3/uL (1.4-4.0); Lymphocytes % 17.4 % (21.3-54.2); Mean Corpuscular HGB Conc 33.1 GM/DL (32-36); Mean Corpuscular Volume 84.9 FL (87-102); Mean Platelet Volume 10.6 FL (9.6-12.0); Monocytes % 3.7 % (1.7-12.7); Neutrophils % 77.9 % (38.7-73.9); Platelet Count 283 T/CUMM (130-400); Red Blood Count 4.56 MC/CUMM (3.8-5.5); Red Cell Distribution Width 13.4 % (9.3-17.3); White Blood Count 7.5 T/CUMM (4-12)
[2021-04-28 06:27] LABS: Potassium 3.8 MMOL/L (3.5-5.1)
[2021-04-28] MEDS: GABAPENTIN 400 MG CAPSULE PO SCH ×2 (11:00→20:55)
[2021-04-28] MEDS: PANTOPRAZOLE 40 MG TABLET PO SCH (11:00)
[2021-04-28] MEDS: amLODIPine 2.5 MG TABLET PO SCH (11:00)
[2021-04-28] MEDS: CLOPIDOGREL 75 MG TABLET PO SCH (11:00)
[2021-04-28] MEDS: CITALOPRAM 20 MG TABLET PO SCH (11:01)
[2021-04-28] MEDS: LOSARTAN/HCTZ 50-12.5 MG TABLET PO SCH (11:01)
[2021-04-28] MEDS: POTASSIUM CHLORIDE 10 MEQ TABLET PO SCH ×2 (11:01→17:42)
[2021-04-28] MEDS: TOPIRAMATE 25 MG TABLET PO SCH ×2 (11:01→20:55)
[2021-04-28] MEDS: ASPIRIN EC 81 MG TABLET PO SCH (11:01)
[2021-04-28] MEDS: ENOXAPARIN 40 MG/0.4 ML SYRINGE SUBCUT SCH (11:01)
[2021-04-28] MEDS: INSULIN LISPRO 100 UNIT/ML SUBCUT SCH ×3 (11:02→17:41)
[2021-04-28] MEDS: INSULIN GLARGINE 100 UNIT/ML SUBCUT SCH ×2 (11:02→20:58)
[2021-04-28] MEDS: oxyCODONE/ACETAMINOPHEN 5-325 MG TABLET PO PRN ×2 (11:06→14:46)
[2021-04-28] MEDS: ONDANSETRON 4 MG/2 ML VIAL IV PRN ×2 (14:47→21:00)
[2021-04-28] MEDS: CITALOPRAM 40 MG TABLET PO SCH (14:48)
[2021-04-28] MEDS: SODIUM CHLORIDE 0.9% 1,000 ML IV SCH (16:12)
[2021-04-28] MEDS: KETOROLAC 15 MG/1 ML VIAL IV SCH ×2 (17:42→23:13)
[2021-04-28] MEDS: traMADol 50 MG TABLET PO PRN (17:43)
[2021-04-28] MEDS: MONTELUKAST 10 MG TABLET PO SCH (20:55)
[2021-04-28] MEDS: SIMVASTATIN 40 MG TABLET PO SCH (20:55)
[2021-04-28] MEDS: LIDOCAINE 5% PATCH TRANSDERM SCH (20:56)
[2021-04-28] MEDS: traZODone 50 MG TABLET PO SCH (20:56)
[2021-04-29] MEDS: SODIUM CHLORIDE 0.9% 1,000 ML IV SCH ×2 (03:13→16:11)
[2021-04-29] MEDS: methylPREDNISolone SOD SUC 40 MG/1 ML VIAL IV SCH ×2 (03:14→14:37)
[2021-04-29] MEDS ORDERED: traMADol 50 MG TABLET PO PRN (03:17)
[2021-04-29] MEDS: METHOCARBAMOL 500 MG TABLET PO PRN (03:20)
[2021-04-29] MEDS: KETOROLAC 15 MG/1 ML VIAL IV SCH ×4 (06:01→23:43)
[2021-04-29] MEDS: INSULIN REGULAR 100 UNIT/ML SUBCUT SCH ×4 (08:07→21:22)
[2021-04-29] MEDS: INSULIN LISPRO 100 UNIT/ML SUBCUT SCH ×4 (08:17→17:35)
[2021-04-29] MEDS: oxyCODONE/ACETAMINOPHEN 5-325 MG TABLET PO PRN (08:46)
[2021-04-29] MEDS: ASPIRIN EC 81 MG TABLET PO SCH (09:10)
[2021-04-29] MEDS: CITALOPRAM 40 MG TABLET PO SCH (09:10)
[2021-04-29] MEDS: CLOPIDOGREL 75 MG TABLET PO SCH (09:11)
[2021-04-29] MEDS: ENOXAPARIN 40 MG/0.4 ML SYRINGE SUBCUT SCH (09:11)
[2021-04-29] MEDS: LIDOCAINE 5% PATCH TRANSDERM SCH (09:34)
[2021-04-29] MEDS: PANTOPRAZOLE 40 MG TABLET PO SCH (09:37)
[2021-04-29] MEDS: LOSARTAN/HCTZ 50-12.5 MG TABLET PO SCH (09:37)
[2021-04-29] MEDS: POTASSIUM CHLORIDE 10 MEQ TABLET PO SCH ×2 (09:37→17:34)
[2021-04-29] MEDS: CITALOPRAM 20 MG TABLET PO SCH (09:37)
[2021-04-29] MEDS: TOPIRAMATE 25 MG TABLET PO SCH ×2 (09:37→21:21)
[2021-04-29] MEDS: GABAPENTIN 400 MG CAPSULE PO SCH ×3 (09:37→21:21)
[2021-04-29] MEDS: amLODIPine 2.5 MG TABLET PO SCH (09:37)
[2021-04-29] MEDS: INSULIN GLARGINE 100 UNIT/ML SUBCUT SCH ×2 (09:49→21:22)
[2021-04-29] MEDS ORDERED: TUBERCULIN SKIN TEST 0.1 ML SYRINGE INTRADERM ONE (14:29)
[2021-04-29] MEDS: oxyCODONE/ACETAMINOPHEN 5-325 MG TABLET PO SCH ×2 (14:36→21:22)
[2021-04-29] MEDS: MONTELUKAST 10 MG TABLET PO SCH (21:21)
[2021-04-29] MEDS: traZODone 50 MG TABLET PO SCH (21:21)
[2021-04-29] MEDS: SIMVASTATIN 40 MG TABLET PO SCH (21:21)
[2021-04-29] MEDS: cefTRIAXone 1,000 MG in SODIUM CHLORIDE 0.9% 100 ML IV SCH (21:23)
[2021-04-30] MEDS: methylPREDNISolone SOD SUC 40 MG/1 ML VIAL IV SCH ×2 (03:10→13:35)
[2021-04-30] MEDS: KETOROLAC 15 MG/1 ML VIAL IV SCH ×3 (04:49→18:02)
[2021-04-30] MEDS: PANTOPRAZOLE 40 MG TABLET PO SCH (09:13)
[2021-04-30] MEDS: POTASSIUM CHLORIDE 10 MEQ TABLET PO SCH ×2 (09:13→16:40)
[2021-04-30] MEDS: GABAPENTIN 400 MG CAPSULE PO SCH ×3 (09:13→20:44)
[2021-04-30] MEDS: amLODIPine 2.5 MG TABLET PO SCH (09:13)
[2021-04-30] MEDS: TOPIRAMATE 25 MG TABLET PO SCH ×2 (09:13→20:44)
[2021-04-30] MEDS: LOSARTAN/HCTZ 50-12.5 MG TABLET PO SCH (09:13)
[2021-04-30] MEDS: INSULIN GLARGINE 100 UNIT/ML SUBCUT SCH ×2 (09:14→20:44)
[2021-04-30] MEDS: CITALOPRAM 20 MG TABLET PO SCH (09:14)
[2021-04-30] MEDS: INSULIN LISPRO 100 UNIT/ML SUBCUT SCH ×3 (09:14→16:40)
[2021-04-30] MEDS: oxyCODONE/ACETAMINOPHEN 5-325 MG TABLET PO SCH ×3 (09:15→20:43)
[2021-04-30] MEDS: LIDOCAINE 5% PATCH TRANSDERM SCH (09:16)
[2021-04-30] MEDS: INSULIN REGULAR 100 UNIT/ML SUBCUT SCH ×4 (10:53→20:45)
[2021-04-30] MEDS: ASPIRIN EC 81 MG TABLET PO SCH (10:55)
[2021-04-30] MEDS: CITALOPRAM 40 MG TABLET PO SCH (10:55)
[2021-04-30] MEDS: ENOXAPARIN 40 MG/0.4 ML SYRINGE SUBCUT SCH (10:56)
[2021-04-30] MEDS: CLOPIDOGREL 75 MG TABLET PO SCH (10:56)
[2021-04-30] MEDS: SODIUM CHLORIDE 0.9% 1,000 ML IV SCH ×2 (13:40→17:02)
[2021-04-30] MEDS: MONTELUKAST 10 MG TABLET PO SCH (20:43)
[2021-04-30] MEDS: traZODone 50 MG TABLET PO SCH (20:43)
[2021-04-30] MEDS: cefTRIAXone 1,000 MG in SODIUM CHLORIDE 0.9% 100 ML IV SCH (20:44)
[2021-04-30] MEDS: SIMVASTATIN 40 MG TABLET PO SCH (20:46)
[2021-05-01] MEDS: KETOROLAC 15 MG/1 ML VIAL IV SCH ×4 (00:05→17:20)
[2021-05-01] MEDS: methylPREDNISolone SOD SUC 40 MG/1 ML VIAL IV SCH ×2 (03:03→14:36)
[2021-05-01] MEDS: oxyCODONE/ACETAMINOPHEN 5-325 MG TABLET PO SCH ×3 (08:29→20:18)
[2021-05-01] MEDS: LOSARTAN/HCTZ 50-12.5 MG TABLET PO SCH (08:29)
[2021-05-01] MEDS: amLODIPine 2.5 MG TABLET PO SCH (08:30)
[2021-05-01] MEDS: CITALOPRAM 20 MG TABLET PO SCH (08:30)
[2021-05-01] MEDS: POTASSIUM CHLORIDE 10 MEQ TABLET PO SCH ×2 (08:30→17:20)
[2021-05-01] MEDS: GABAPENTIN 400 MG CAPSULE PO SCH ×3 (08:30→20:18)
[2021-05-01] MEDS: PANTOPRAZOLE 40 MG TABLET PO SCH (08:30)
[2021-05-01] MEDS: TOPIRAMATE 25 MG TABLET PO SCH ×2 (08:30→20:18)
[2021-05-01] MEDS: INSULIN GLARGINE 100 UNIT/ML SUBCUT SCH ×2 (08:36→20:27)
[2021-05-01] MEDS: INSULIN REGULAR 100 UNIT/ML SUBCUT SCH ×4 (08:36→20:19)
[2021-05-01] MEDS: INSULIN LISPRO 100 UNIT/ML SUBCUT SCH ×3 (08:36→17:23)
[2021-05-01] MEDS: ASPIRIN EC 81 MG TABLET PO SCH (08:37)
[2021-05-01] MEDS: CLOPIDOGREL 75 MG TABLET PO SCH (08:37)
[2021-05-01] MEDS: ENOXAPARIN 40 MG/0.4 ML SYRINGE SUBCUT SCH (08:37)
[2021-05-01] MEDS: LIDOCAINE 5% PATCH TRANSDERM SCH (08:42)
[2021-05-01] MEDS: CITALOPRAM 40 MG TABLET PO SCH (08:42)
[2021-05-01] MEDS: SODIUM CHLORIDE 0.9% 1,000 ML IV SCH ×2 (17:19)
[2021-05-01] MEDS: ZINC OXIDE 16% PASTE 57 GM TUBE TOP SCH ×2 (17:22→20:27)
[2021-05-01] MEDS: SIMVASTATIN 40 MG TABLET PO SCH (20:18)
[2021-05-01] MEDS: traZODone 50 MG TABLET PO SCH (20:18)
[2021-05-01] MEDS: MONTELUKAST 10 MG TABLET PO SCH (20:18)
[2021-05-01] MEDS: cefTRIAXone 1,000 MG in SODIUM CHLORIDE 0.9% 100 ML IV SCH (20:19)
[2021-05-02] MEDS: KETOROLAC 15 MG/1 ML VIAL IV SCH ×3 (00:07→12:11)
[2021-05-02] MEDS: methylPREDNISolone SOD SUC 40 MG/1 ML VIAL IV SCH (02:23)
[2021-05-02] MEDS: SODIUM CHLORIDE 0.9% 1,000 ML IV SCH (05:18)
[2021-05-02 06:05] LABS: Basophils # 0.1 10*3/uL (0.0-0.2); Basophils % 0.5 % (0.0-0.8); Eosinophils # 0.2 10*3/uL (0.0-0.87); Eosinophils % 1.9 % (0.00-10.9); Hematocrit 41.7 VOL% (35.7-47.0); Hemoglobin 13.5 GM/DL (12.0-16.0); Immature Granulocytes % 1.1 %; Immature Granulocytes Absolute 0.12 #; Lymphocytes # 2.1 10*3/uL (1.4-4.0); Lymphocytes % 19.3 % (21.3-54.2); Mean Corpuscular HGB Conc 32.4 GM/DL (32-36); Mean Corpuscular Volume 86.3 FL (87-102); Mean Platelet Volume 10.3 FL (9.6-12.0); Monocytes % 4.7 % (1.7-12.7); Neutrophils % 72.5 % (38.7-73.9); Platelet Count 371 T/CUMM (130-400); Red Blood Count 4.83 MC/CUMM (3.8-5.5); Red Cell Distribution Width 13.8 % (9.3-17.3)
[2021-05-02 06:15] LABS: Calcium 8.9 MG/DL (8.5-10.1); Osmolality,Calculated 279.8 MOS/KG (273-304); Potassium 3.6 MMOL/L (3.5-5.1)
[2021-05-02] MEDS: INSULIN GLARGINE 100 UNIT/ML SUBCUT SCH (08:38)
[2021-05-02] MEDS: INSULIN LISPRO 100 UNIT/ML SUBCUT SCH ×2 (08:39→12:10)
[2021-05-02] MEDS: oxyCODONE/ACETAMINOPHEN 5-325 MG TABLET PO SCH (08:39)
[2021-05-02] MEDS: INSULIN REGULAR 100 UNIT/ML SUBCUT SCH ×2 (08:39→12:10)
[2021-05-02] MEDS: LOSARTAN/HCTZ 50-12.5 MG TABLET PO SCH (08:40)
[2021-05-02] MEDS: CITALOPRAM 40 MG TABLET PO SCH (08:40)
[2021-05-02] MEDS: POTASSIUM CHLORIDE 10 MEQ TABLET PO SCH (08:40)
[2021-05-02] MEDS: TOPIRAMATE 25 MG TABLET PO SCH (08:40)
[2021-05-02] MEDS: PANTOPRAZOLE 40 MG TABLET PO SCH (08:41)
[2021-05-02] MEDS: GABAPENTIN 400 MG CAPSULE PO SCH (08:41)
[2021-05-02] MEDS: ASPIRIN EC 81 MG TABLET PO SCH (08:47)
[2021-05-02] MEDS: ZINC OXIDE 16% PASTE 57 GM TUBE TOP SCH (08:47)
[2021-05-02] MEDS: LIDOCAINE 5% PATCH TRANSDERM SCH (08:50)
[2021-05-02] MEDS: ENOXAPARIN 40 MG/0.4 ML SYRINGE SUBCUT SCH (10:08)
[2021-05-02] MEDS: amLODIPine 2.5 MG TABLET PO SCH (10:29)
[2021-05-02 12:32] VITALS: BP 149/75
== END 2021-05-02 13:07 | disposition swing bed (61) | DRG 74 ==
LOC: EDUNIT# → EDBD → N.EDINP 20:10 → N.ED 20:10 → N.2W 04-25 01:14
PROVIDERS: ADMIT Internal Medicine; ATTEND Internal Medicine

== ENCOUNTER 2021-07-25 13:26 | Inpatient (IN) ==
[2021-07-25] MEDS ORDERED: ONDANSETRON 4 MG/2 ML VIAL IV STA (18:51)
[2021-07-25] MEDS ORDERED: SODIUM CHLORIDE 0.9% 500 ML IV STA (18:51)
[2021-07-25 19:16] LABS: Alanine Aminotransferase 29 U/L (13-56); Albumin 3.5 G/DL (3.4-5.0); Alkaline Phosphatase 109 U/L (45-117); Amylase 42 U/L (25-115); Aspartate Amino Transferase 18 U/L (0-37); Bilirubin,Total < 0.39 MG/DL (0.20-1.00); Blood Urea Nitrogen 24 MG/DL (7-18); Carbon Dioxide 27 MMOL/L (21-32); Estimated Glom Filtration Rate 57 ML/MIN; Glucose 213 MG/DL (74-106); Osmolality,Calculated 284.7 MOS/KG (273-304); Potassium 3.2 MMOL/L (3.5-5.1); Sodium 138 MMOL/L (136-145); Total Protein 7.1 G/DL (6.4-8.2)
[2021-07-25] MEDS ORDERED: POTASSIUM CHLORIDE 20 MEQ TABLET PO STA (19:21)
[2021-07-25 19:26] LABS: Basophils % 0.2 % (0.0-0.8); Eosinophils % 0.2 % (0.00-10.9); Hematocrit 43.8 VOL% (35.7-47.0); Hemoglobin 14.8 GM/DL (12.0-16.0); Immature Granulocytes % 0.6 %; Immature Granulocytes Absolute 0.03 #; Lymphocytes # 1.6 10*3/uL (1.4-4.0); Lymphocytes % 32.6 % (21.3-54.2); Mean Corpuscular HGB Conc 33.8 GM/DL (32-36); Mean Corpuscular Volume 83.1 FL (87-102); Mean Platelet Volume 10.8 FL (9.6-12.0); Monocytes % 8.4 % (1.7-12.7); Platelet Count 191 T/CUMM (130-400); Red Blood Count 5.27 MC/CUMM (3.8-5.5); Red Cell Distribution Width 13.5 % (9.3-17.3); White Blood Count 4.8 T/CUMM (4-12)
[2021-07-25 20:16] LABS: Bilirubin,Urine Negative (Negative); Blood, Urine Negative (Negative); Glucose,Urine (UA) >=500 mg/dL (Negative); Ketones,Urine Negative (Negative); Nitrite,Urine Negative (Negative); Protein,Urine 30 MG/DL; Squamous Epithelial Cell,Urine Occasional /HPF (0-10); Urine Appearance CLEAR (Clear); Urine Color Yellow (Yellow); Urine Specific Gravity 1.025 (1.001-1.035); Urine Urobilinogen < 2.0 EU/DL (<2.0)
[2021-07-25] MEDS ORDERED: ACETAMINOPHEN 325 MG TABLET PO PRN (22:11)
[2021-07-25] MEDS ORDERED: ONDANSETRON 4 MG/2 ML VIAL IV PRN (22:11)
[2021-07-25] MEDS ORDERED: MORPHINE 2 MG/1 ML SYRINGE IV PRN (22:11)
[2021-07-25] MEDS ORDERED: GLUCAGON 1 MG VIAL IM PRN (22:11)
[2021-07-25] MEDS ORDERED: DEXTROSE 10% 250 ML BAG IV PRN (22:11)
[2021-07-25] MEDS: DOCUSATE SODIUM 100 MG CAPSULE PO SCH (22:46)
[2021-07-25] MEDS: SODIUM CHLORIDE 0.9% 1,000 ML IV SCH (22:47)
[2021-07-26] MEDS: INSULIN REGULAR 100 UNIT/ML SUBCUT SCH ×2 (00:50→06:58)
[2021-07-26] MEDS: SODIUM CHLORIDE 0.9% 1,000 ML IV SCH ×2 (06:59→15:33)
[2021-07-26 07:03] LABS: Alanine Aminotransferase 22 U/L (13-56); Albumin 2.7 G/DL (3.4-5.0); Alkaline Phosphatase 86 U/L (45-117); Aspartate Amino Transferase 15 U/L (0-37); Bilirubin,Total < 0.39 MG/DL (0.20-1.00); Blood Urea Nitrogen 17 MG/DL (7-18); Calcium 8.2 MG/DL (8.5-10.1); Carbon Dioxide 25 MMOL/L (21-32); Estimated Glom Filtration Rate 66 ML/MIN; Glucose 130 MG/DL (74-106); Osmolality,Calculated 282.4 MOS/KG (273-304); Sodium 140 MMOL/L (136-145); Total Protein 6.3 G/DL (6.4-8.2)
[2021-07-26 07:22] LABS: Basophils % 0.2 % (0.0-0.8); Eosinophils % 0.2 % (0.00-10.9); Hematocrit 38.5 VOL% (35.7-47.0); Immature Granulocytes % 0.5 %; Immature Granulocytes Absolute 0.02 #; Lymphocytes # 1.8 10*3/uL (1.4-4.0); Lymphocytes % 40.3 % (21.3-54.2); Mean Corpuscular HGB Conc 33.8 GM/DL (32-36); Mean Corpuscular Volume 84.2 FL (87-102); Mean Platelet Volume 10.4 FL (9.6-12.0); Monocytes % 10.3 % (1.7-12.7); Neutrophils % 48.5 % (38.7-73.9); Red Blood Count 4.57 MC/CUMM (3.8-5.5); Red Cell Distribution Width 13.8 % (9.3-17.3); White Blood Count 4.4 T/CUMM (4-12)
[2021-07-26 07:23] LABS: Platelet Count 159 T/CUMM (130-400)
[2021-07-26] MEDS ORDERED: ACETAMINOPHEN 325 MG TABLET PO PRN ×2 (08:41→11:16)
[2021-07-26] MEDS ORDERED: methylPREDNISolone SOD SUC 125 MG/2 ML VIAL IV PRN (08:41)
[2021-07-26] MEDS ORDERED: MECLIZINE 25 MG TABLET PO PRN (08:41)
[2021-07-26] MEDS ORDERED: ONDANSETRON 4 MG/2 ML VIAL IV PRN (08:41)
[2021-07-26] MEDS ORDERED: diphenhydrAMINE 50 MG/1 ML VIAL IV PRN ×2 (08:41)
[2021-07-26] MEDS ORDERED: DEXAMETHASONE 4 MG TABLET PO ONE (09:00)
[2021-07-26] MEDS ORDERED: BAMLANIVIMAB 700 MG, ETESEVIMAB 1,400 MG in SODIUM CHLORIDE 0.9% 40 ML IV ONE (09:00)
[2021-07-26] MEDS ORDERED: PANTOPRAZOLE 40 MG VIAL IV SCH (09:00)
[2021-07-26] MEDS ORDERED: DEXTROSE 50% 25 GM/50 ML VIAL IV PRN (09:28)
[2021-07-26] MEDS ORDERED: GLUCAGON 1 MG VIAL IM PRN (09:28)
[2021-07-26] MEDS: DOCUSATE SODIUM 100 MG CAPSULE PO SCH ×2 (09:49→21:21)
[2021-07-26] MEDS ORDERED: METHOCARBAMOL 750 MG TABLET PO PRN (11:16)
[2021-07-26] MEDS ORDERED: ALBUTEROL 2.5 MG/3 ML NEB RESP TX PRN (11:16)
[2021-07-26] MEDS ORDERED: traMADol 50 MG TABLET PO PRN (11:16)
[2021-07-26] MEDS ORDERED: traZODone 50 MG TABLET PO PRN (11:16)
[2021-07-26] MEDS ORDERED: ONDANSETRON ODT 4 MG TABLET PO PRN (11:16)
[2021-07-26] MEDS: LORATADINE 10 MG TABLET PO SCH (12:33)
[2021-07-26] MEDS: INSULIN GLARGINE 100 UNIT/ML SUBCUT SCH (12:34)
[2021-07-26] MEDS: ENOXAPARIN 40 MG/0.4 ML SYRINGE SUBCUT SCH ×2 (12:34→23:20)
[2021-07-26] MEDS: INSULIN LISPRO 100 UNIT/ML SUBCUT SCH ×5 (14:44→21:20)
[2021-07-26] MEDS: GABAPENTIN 300 MG CAPSULE PO SCH ×2 (16:29→21:21)
[2021-07-26] MEDS: metFORMIN 500 MG TABLET PO SCH (16:32)
[2021-07-26] MEDS: POTASSIUM CHLORIDE 10 MEQ TABLET PO SCH (16:32)
[2021-07-26] MEDS ORDERED: NON-FORMULARY MEDICATION (Insulin Glargine [Basaglar Kwikpen U-100 Insulin] 100 unit/mL (3 SUBCUT SCH (21:00)
[2021-07-26] MEDS: CLOTRIMAZOLE/BETAMETHASONE CREAM 15 GM TUBE TOP SCH (21:20)
[2021-07-26] MEDS: ASCORBIC ACID 500 MG TABLET PO SCH (21:21)
[2021-07-26] MEDS: AMITRIPTYLINE 50 MG TABLET PO SCH (21:21)
[2021-07-26] MEDS: TOPIRAMATE 100 MG TABLET PO SCH (21:21)
[2021-07-26] MEDS: FAMOTIDINE 20 MG TABLET PO SCH (21:21)
[2021-07-26] MEDS: SIMVASTATIN 40 MG TABLET PO SCH (21:21)
[2021-07-27] MEDS: SODIUM CHLORIDE 0.9% 1,000 ML IV SCH ×4 (01:35→22:32)
[2021-07-27 05:54] LABS: Hematocrit 38.1 VOL% (35.7-47.0); Hemoglobin 12.3 GM/DL (12.0-16.0); Immature Granulocytes % 0.8 %; Immature Granulocytes Absolute 0.02 #; Lymphocytes % 39.8 % (21.3-54.2); Mean Corpuscular HGB Conc 32.3 GM/DL (32-36); Mean Corpuscular Volume 85.6 FL (87-102); Monocytes % 10.2 % (1.7-12.7); Neutrophils % 49.2 % (38.7-73.9); Platelet Count 149 T/CUMM (130-400); Red Blood Count 4.45 MC/CUMM (3.8-5.5); Red Cell Distribution Width 13.5 % (9.3-17.3); White Blood Count 2.5 T/CUMM (4-12)
[2021-07-27 06:11] LABS: Calcium 8.1 MG/DL (8.5-10.1); Osmolality,Calculated 283.7 MOS/KG (273-304); Potassium 3.9 MMOL/L (3.5-5.1)
[2021-07-27] MEDS: INSULIN GLARGINE 100 UNIT/ML SUBCUT SCH (10:28)
[2021-07-27] MEDS: INSULIN LISPRO 100 UNIT/ML SUBCUT SCH ×7 (10:29→21:27)
[2021-07-27] MEDS: FAMOTIDINE 20 MG TABLET PO SCH ×2 (10:29→21:30)
[2021-07-27] MEDS: ASPIRIN EC 81 MG TABLET PO SCH (10:29)
[2021-07-27] MEDS: LORATADINE 10 MG TABLET PO SCH (10:30)
[2021-07-27] MEDS: CLOPIDOGREL 75 MG TABLET PO SCH (10:30)
[2021-07-27] MEDS: LOSARTAN/HCTZ 50-12.5 MG TABLET PO SCH (10:30)
[2021-07-27] MEDS: metFORMIN 500 MG TABLET PO SCH ×2 (10:30→17:32)
[2021-07-27] MEDS: ASCORBIC ACID 500 MG TABLET PO SCH ×2 (10:30→21:31)
[2021-07-27] MEDS: amLODIPine 2.5 MG TABLET PO SCH (10:30)
[2021-07-27] MEDS: DOCUSATE SODIUM 100 MG CAPSULE PO SCH ×2 (10:30→21:30)
[2021-07-27] MEDS: POTASSIUM CHLORIDE 10 MEQ TABLET PO SCH ×2 (10:30→17:32)
[2021-07-27] MEDS: MELOXICAM 7.5 MG TABLET PO SCH (10:30)
[2021-07-27] MEDS: CLOTRIMAZOLE/BETAMETHASONE CREAM 15 GM TUBE TOP SCH ×2 (10:31→21:30)
[2021-07-27] MEDS: CITALOPRAM 20 MG TABLET PO SCH (10:31)
[2021-07-27] MEDS: PANTOPRAZOLE 40 MG TABLET PO SCH (10:31)
[2021-07-27] MEDS: GABAPENTIN 300 MG CAPSULE PO SCH ×3 (10:31→21:30)
[2021-07-27] MEDS: TOPIRAMATE 100 MG TABLET PO SCH ×2 (10:31→21:30)
[2021-07-27] MEDS: ENOXAPARIN 40 MG/0.4 ML SYRINGE SUBCUT SCH ×2 (13:45→23:31)
[2021-07-27] MEDS: AMITRIPTYLINE 50 MG TABLET PO SCH (21:30)
[2021-07-27] MEDS: SIMVASTATIN 40 MG TABLET PO SCH (21:31)
[2021-07-28 05:38] LABS: Basophils % 0.4 % (0.0-0.8); Eosinophils % 0.4 % (0.00-10.9); Hematocrit 38.5 VOL% (35.7-47.0); Hemoglobin 12.5 GM/DL (12.0-16.0); Immature Granulocytes Absolute 0.05 #; Lymphocytes # 2.6 10*3/uL (1.4-4.0); Lymphocytes % 51.4 % (21.3-54.2); Mean Corpuscular HGB Conc 32.5 GM/DL (32-36); Mean Corpuscular Volume 85.9 FL (87-102); Mean Platelet Volume 10.8 FL (9.6-12.0); Monocytes % 6.7 % (1.7-12.7); Neutrophils % 40.1 % (38.7-73.9); Platelet Count 152 T/CUMM (130-400); Red Blood Count 4.48 MC/CUMM (3.8-5.5); Red Cell Distribution Width 13.7 % (9.3-17.3); White Blood Count 5.1 T/CUMM (4-12)
[2021-07-28 06:03] LABS: Calcium 8.2 MG/DL (8.5-10.1); Osmolality,Calculated 278.5 MOS/KG (273-304); Potassium 3.2 MMOL/L (3.5-5.1)
[2021-07-28] MEDS: INSULIN LISPRO 100 UNIT/ML SUBCUT SCH ×7 (08:05→20:19)
[2021-07-28] MEDS: metFORMIN 500 MG TABLET PO SCH ×2 (08:47→17:27)
[2021-07-28] MEDS: LOSARTAN/HCTZ 50-12.5 MG TABLET PO SCH (08:47)
[2021-07-28] MEDS: POTASSIUM CHLORIDE 10 MEQ TABLET PO SCH ×2 (08:47→17:28)
[2021-07-28] MEDS: GABAPENTIN 300 MG CAPSULE PO SCH ×3 (08:48→21:24)
[2021-07-28] MEDS: ASPIRIN EC 81 MG TABLET PO SCH (08:48)
[2021-07-28] MEDS: FAMOTIDINE 20 MG TABLET PO SCH ×2 (08:48→21:24)
[2021-07-28] MEDS: amLODIPine 2.5 MG TABLET PO SCH (08:48)
[2021-07-28] MEDS: MELOXICAM 7.5 MG TABLET PO SCH (08:48)
[2021-07-28] MEDS: PANTOPRAZOLE 40 MG TABLET PO SCH (08:48)
[2021-07-28] MEDS: LORATADINE 10 MG TABLET PO SCH (08:48)
[2021-07-28] MEDS: ASCORBIC ACID 500 MG TABLET PO SCH ×2 (08:48→21:24)
[2021-07-28] MEDS: CITALOPRAM 20 MG TABLET PO SCH (08:48)
[2021-07-28] MEDS: CLOPIDOGREL 75 MG TABLET PO SCH (08:48)
[2021-07-28] MEDS: INSULIN GLARGINE 100 UNIT/ML SUBCUT SCH (08:49)
[2021-07-28] MEDS: DOCUSATE SODIUM 100 MG CAPSULE PO SCH ×2 (08:49→21:24)
[2021-07-28] MEDS: CLOTRIMAZOLE/BETAMETHASONE CREAM 15 GM TUBE TOP SCH ×2 (08:59→21:24)
[2021-07-28] MEDS: TOPIRAMATE 100 MG TABLET PO SCH ×2 (08:59→21:24)
[2021-07-28] MEDS: ENOXAPARIN 40 MG/0.4 ML SYRINGE SUBCUT SCH (13:05)
[2021-07-28] MEDS: SODIUM CHLORIDE 0.9% 1,000 ML IV SCH (14:11)
[2021-07-28] MEDS: AMITRIPTYLINE 50 MG TABLET PO SCH (21:24)
[2021-07-28] MEDS: SIMVASTATIN 40 MG TABLET PO SCH (21:24)
[2021-07-29] MEDS: ENOXAPARIN 40 MG/0.4 ML SYRINGE SUBCUT SCH ×2 (00:23→12:40)
[2021-07-29 03:07] LABS: Basophils % 0.2 % (0.0-0.8); Eosinophils % 0.5 % (0.00-10.9); Hematocrit 39.3 VOL% (35.7-47.0); Hemoglobin 12.8 GM/DL (12.0-16.0); Immature Granulocytes % 0.9 %; Immature Granulocytes Absolute 0.05 #; Lymphocytes # 2.7 10*3/uL (1.4-4.0); Lymphocytes % 48.2 % (21.3-54.2); Mean Corpuscular HGB Conc 32.6 GM/DL (32-36); Mean Corpuscular Volume 84.3 FL (87-102); Mean Platelet Volume 10.6 FL (9.6-12.0); Monocytes % 6.9 % (1.7-12.7); Neutrophils % 43.3 % (38.7-73.9); Platelet Count 154 T/CUMM (130-400); Red Blood Count 4.66 MC/CUMM (3.8-5.5); Red Cell Distribution Width 13.6 % (9.3-17.3); White Blood Count 5.5 T/CUMM (4-12)
[2021-07-29 03:37] LABS: Calcium 8.2 MG/DL (8.5-10.1); Osmolality,Calculated 281.3 MOS/KG (273-304); Potassium 3.2 MMOL/L (3.5-5.1)
[2021-07-29] MEDS: SODIUM CHLORIDE 0.9% 1,000 ML IV SCH (04:50)
[2021-07-29] MEDS: CITALOPRAM 20 MG TABLET PO SCH (09:30)
[2021-07-29] MEDS: POTASSIUM CHLORIDE 10 MEQ TABLET PO SCH (09:30)
[2021-07-29] MEDS: PANTOPRAZOLE 40 MG TABLET PO SCH (09:30)
[2021-07-29] MEDS: TOPIRAMATE 100 MG TABLET PO SCH ×2 (09:30→22:18)
[2021-07-29] MEDS: MELOXICAM 7.5 MG TABLET PO SCH (09:30)
[2021-07-29] MEDS: amLODIPine 2.5 MG TABLET PO SCH (09:30)
[2021-07-29] MEDS: LOSARTAN/HCTZ 50-12.5 MG TABLET PO SCH (09:30)
[2021-07-29] MEDS: INSULIN GLARGINE 100 UNIT/ML SUBCUT SCH (09:30)
[2021-07-29] MEDS: FAMOTIDINE 20 MG TABLET PO SCH ×2 (09:30→22:18)
[2021-07-29] MEDS: DOCUSATE SODIUM 100 MG CAPSULE PO SCH ×2 (09:30→22:18)
[2021-07-29] MEDS: LORATADINE 10 MG TABLET PO SCH (09:30)
[2021-07-29] MEDS: ASCORBIC ACID 500 MG TABLET PO SCH ×2 (09:30→22:18)
[2021-07-29] MEDS: ASPIRIN EC 81 MG TABLET PO SCH (09:30)
[2021-07-29] MEDS: CLOPIDOGREL 75 MG TABLET PO SCH (09:30)
[2021-07-29] MEDS: INSULIN LISPRO 100 UNIT/ML SUBCUT SCH ×7 (09:30→22:12)
[2021-07-29] MEDS: metFORMIN 500 MG TABLET PO SCH ×2 (09:30→16:45)
[2021-07-29] MEDS: CLOTRIMAZOLE/BETAMETHASONE CREAM 15 GM TUBE TOP SCH ×2 (09:30→22:18)
[2021-07-29] MEDS: GABAPENTIN 300 MG CAPSULE PO SCH ×3 (09:30→22:17)
[2021-07-29] MEDS: POTASSIUM CHLORIDE 20 MEQ TABLET PO SCH (16:45)
[2021-07-29] MEDS: AMITRIPTYLINE 50 MG TABLET PO SCH (22:17)
[2021-07-29] MEDS: SIMVASTATIN 40 MG TABLET PO SCH (22:19)
[2021-07-30] MEDS: ENOXAPARIN 40 MG/0.4 ML SYRINGE SUBCUT SCH (00:32)
[2021-07-30 06:04] LABS: Calcium 8.9 MG/DL (8.5-10.1); Osmolality,Calculated 277.4 MOS/KG (273-304); Potassium 3.6 MMOL/L (3.5-5.1)
[2021-07-30] MEDS: INSULIN LISPRO 100 UNIT/ML SUBCUT SCH ×3 (08:59→12:39)
[2021-07-30] MEDS: INSULIN GLARGINE 100 UNIT/ML SUBCUT SCH (09:03)
[2021-07-30] MEDS: POTASSIUM CHLORIDE 20 MEQ TABLET PO SCH (09:21)
[2021-07-30] MEDS: TOPIRAMATE 100 MG TABLET PO SCH (09:21)
[2021-07-30] MEDS: LOSARTAN/HCTZ 50-12.5 MG TABLET PO SCH (09:21)
[2021-07-30] MEDS: GABAPENTIN 300 MG CAPSULE PO SCH (09:22)
[2021-07-30] MEDS: ASCORBIC ACID 500 MG TABLET PO SCH (09:22)
[2021-07-30] MEDS: CITALOPRAM 20 MG TABLET PO SCH (09:22)
[2021-07-30] MEDS: metFORMIN 500 MG TABLET PO SCH (09:22)
[2021-07-30] MEDS: FAMOTIDINE 20 MG TABLET PO SCH (09:22)
[2021-07-30] MEDS: PANTOPRAZOLE 40 MG TABLET PO SCH (09:22)
[2021-07-30] MEDS: MELOXICAM 7.5 MG TABLET PO SCH (09:22)
[2021-07-30] MEDS: DOCUSATE SODIUM 100 MG CAPSULE PO SCH (09:22)
[2021-07-30] MEDS: ASPIRIN EC 81 MG TABLET PO SCH (09:23)
[2021-07-30] MEDS: CLOPIDOGREL 75 MG TABLET PO SCH (09:23)
[2021-07-30] MEDS: amLODIPine 2.5 MG TABLET PO SCH (09:23)
[2021-07-30] MEDS: CLOTRIMAZOLE/BETAMETHASONE CREAM 15 GM TUBE TOP SCH (09:23)
[2021-07-30] MEDS: LORATADINE 10 MG TABLET PO SCH (09:23)
[2021-07-30 10:16] VITALS: BP 133/77
== END 2021-07-30 12:42 | disposition home health service (06) | DRG 640 ==
LOC: EDUNIT# → N.EDINP 13:26 → N.ED 13:26 → N.3E 22:56
PROVIDERS: ADMIT Internal Medicine; ATTEND Internal Medicine